=== PATIENT | male | born 1950 | race Caucasian/White ===

== ENCOUNTER 2017-07-29 05:31 | Day surgery (SDC) | payer OTHER ==
[~2017-07-29] VITALS: Ht 177.8 cm; Wt 82.6 kg
--- NOTE | ~2017-07-29 | EKG ---
[address] [place] [address] ELECTROCARDIOGRAM REPORT Name: JOE MARLOW Room #: 412-P 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 : 1950 Requested By: Suman Loera Order Number: [id number] MD: Christian Shaffer Measurements Intervals [place] Rate: 54 P: 22 NM: 164 QRS: -33 QRSD: 154 T: 105 QT: 477 QTc: 453 Interpretive Statements Sinus rhythm IVCD, consider atypical RBBB LVH with IVCD and secondary repol abnrm Probable lateral infarct, age indeterminate Baseline wander in lead(s) V3 No previous ECG available for comparison Electronically Signed On 07-30-2017 12:41:05 [employer] by Christian Shaffer [email or web address] <ELECTRONICALLY SIGNED> By: Christian Shaffer MD 07/30/17 1241 1415 1415 Christian Shaffer MD /EPI
--- NOTE | ~2017-07-29 | O ---
[facility] [place] [address] OPERATIVE REPORT Name: JOE MARLOW Room #: DEP [facility]#: [id number] Admission: 07/29/17 Attend Phys: Suman Loera MD Discharge: 07/30/17 Date of : 50 Report #: [id number] THIS REPORT FOR: //name// CC: DAVINA physician/PCP Suman Loera DATE OF SERVICE: 07/29/2017 PREOPERATIVE DIAGNOSIS: Left hindfoot arthritis with flatfoot deformity. POSTOPERATIVE DIAGNOSIS: Left hindfoot arthritis with flatfoot deformity. PROCEDURE: Hindfoot triple arthrodesis. SURGEON: Suman Loera MD ANESTHESIA: General. ESTIMATED BLOOD LOSS: Minimal. DRAINS: None. TOURNIQUET TIME: 90 minutes. DESCRIPTION OF PROCEDURE: The patient brought to the operating room, where he was placed under general anesthesia. Once under adequate general anesthesia, his left lower extremity was prepped and draped in sterile manner. The extremity was elevated, exsanguinated, tourniquet placed to 300 mmHg. A lateral incision over the sinus tarsi, extending distally over the cuboid was then made and this was dissected down through soft tissue to the subtalar joint, which was then completely exposed after elevating the digitorum brevis after the calcaneocuboid joint as well. Exposure was made of both of these joints, which were then prepared sequentially with osteotomes, curettes and a vignesh to remove any cartilage and to get good bleeding of subchondral bone. Once complete on the lateral foot, a dorsal incision was made over the talonavicular joint and exposure of the talonavicular joint was completed. With exposure of the talonavicular joint, removed any cartilage from the joint utilizing osteotomes, curettes and a vignesh. Once the cartilage was completely removed and the joint prepared, demineralized bone matrix allograft was placed into the joints and subsequent fixation across the joint was achieved with first three 7.3 mm cannulated screws placed across subtalar joint for fixation performed under fluoroscopic guidance, three 4.5 mm cannulated screws was placed across talonavicular joint, two 4.5 mm cannulated screws were placed across the calcaneocuboid joint with subsequent additional fixation laterally with an X-Plate from the [employer] foot tray. Excellent fixation and alignment was achieved in this manner as verified under fluoroscopy. The wounds were [address] [address] OPERATIVE REPORT Name: JOE MARLOW Room #: DEP [facility] [place]#: [id number] Admission: 07/29/17 Attend Phys: Suman Loera MD Discharge: 07/30/17 Date of : 50 Report #: [id number] irrigated copiously and closed with 2-0 Vicryl in the deep and subcutaneous tissues and zenon for the skin. The wounds were dressed with Xeroform, 4 x 4s, and sterile soft compressive dressing with a short leg cast was placed. Tourniquet was let down approximately 90 minutes. Toes were pink and warm with good capillary refill. There were no complications from the procedure. The patient tolerated the procedure well and was taken to the recovery room without incident. <ELECTRONICALLY SIGNED> By: Suman Loera MD 08/04/17 1740 0944 1048 Suman Loera MD /nt
[~2017-07-29 05:31] MED LIST: DIVALPROEX SOD500 MG PO; GABAPENTIN 100100 MG PO; LITHIUM CARBON300 M3 PO; TAMSULOSIN HCL0.4 MG PO; TOPROL XL25 MG PO; TYLENOL325 MG PO
[2017-07-29 14:12] VITALS: BP 139/91
[2017-07-29 20:17] VITALS: BP 166/67
[2017-07-29 23:49] VITALS: BP 170/79
[2017-07-30 03:54] LABS: HEMATOCRIT 41.5 % (42.0-52.0); HEMOGLOBIN 13.2 gm/dL (14.0-18.0)
[2017-07-30 04:08] LABS: POTASSIUM 4.5 mmol/L (3.5-5.1)
[2017-07-30 05:38] VITALS: BP 176/80
[2017-07-30 08:00] VITALS: BP 149/52
[2017-07-30 15:14] VITALS: BP 149/52
[2017-07-30 15:44] VITALS: BP 130/73
== END 2017-07-30 16:22 | disposition home health service (06) ==
LOC: TBA 05:31 → OR 05:31 → TBA 05:32 → OR 11:14 → 4N 18:33 → OR 07-30 16:22
PROVIDERS: Orthopaedic Surgery Foot and Ankle Surgery
DX: M19.072 Primary osteoarthritis, left ankle and foot (principal); M21.42 Flat foot [pes planus] (acquired), left foot; I10 Essential (primary) hypertension; F31.9 Bipolar disorder, unspecified; Z85.828 Personal history of other malignant neoplasm of skin; Z98.890 Other specified postprocedural states; Z79.899 Other long term (current) drug therapy